=== PATIENT | female | born 1940 ===

== ENCOUNTER 2020-04-16 10:15 | Inpatient (IN) | payer OTHER ==
[~2020-04-16] VITALS: Ht 162.6 cm; Wt 75.7 kg
[2020-04-16] MEDS ORDERED: [UNRECOGNIZED DRUG - OTHER] PO (14:00)
[2020-04-16] MEDS ORDERED: VITAMIN D PO (14:11)
[2020-04-16] MEDS ORDERED: GORDON'S VITE A75 GM PO (14:11)
[2020-04-23] MEDS ORDERED: VITAMIN B-1250 MCG PO (09:51)
[2020-04-23] MEDS ORDERED: ZESTRIL10 M1 PO (09:51)
[2020-04-23] MEDS ORDERED: VITAMIN D310 MC5 PO (09:51)
[2020-04-23] MEDS ORDERED: CLOPIDOGREL BIS75 MG (09:52)
[2020-04-23] MEDS ORDERED: GEMFIBROZIL600 MG (09:52)
[2020-04-23] MEDS ORDERED: SIMVASTATIN20 MG (09:52)
== END 2020-04-25 17:32 | disposition home or self-care (01) | DRG 330 ==
LOC: O/R 04-23 07:28 → SURG 04-23 07:28 → O/R 04-23 10:15 → SURG 04-23 13:05 → O/R 04-23 14:00 → SURG 04-23 14:34
PROVIDERS: ADMIT Colon & Rectal Surgery; ATTEND Colon & Rectal Surgery
PROC: 0DBP4ZZ Excision of Rectum, Percutaneous Endoscopic Approach (ICD-10-PCS; 2020-04-23)
PROC: 0DBN4ZZ Excision of Sigmoid Colon, Percutaneous Endoscopic Approach (ICD-10-PCS; principal; 2020-04-23 14:00)
DX: K57.32 Diverticulitis of large intestine without perforation or abscess without bleeding (principal); K92.1 Melena; I10 Essential (primary) hypertension